=== PATIENT | male | born 1985 | race Caucasian/White ===

== ENCOUNTER 2024-05-23 20:45 | Emergency (ER) | payer SELFPAY ==
[2024-05-23 20:50] VITALS: BP 141/90
[2024-05-23 21:05] LABS: % Basophils 0.2 % (0-2); % Eosinophils 0.7 % (0-6); % Immature Granulocytes 0.5 % (0-0.5); % Lymphocytes 26.2 % (20.5-51.1); % Neutrophils 65.4 % (42.2-75.2); Absolute Eosinophils 0.1 10^3/uL (0-0.7); Absolute Lymphocytes 2.3 10^3/uL (1.2-3.4); Absolute Monocytes 0.6 10^3/uL (0.1-0.6); Absolute Neutrophils 5.8 10^3/uL (1.4-6.5); Hematocrit 49.4 % (39.0-52.0); Hemoglobin 16.7 g/dL (13.0-18.0); Mean Corp Hgb Conc. 33.8 g/dL (33.0-37.0); Mean Corpuscular Hgb 31.9 pg (27.0-31.0); Mean Corpuscular Volume 94.5 fL (80.0-94.0); Mean Platelet Volume 8.4 fL (7.4-10.4); Nucleated Red Blood Cells % 0 % (-); Platelet Count 213 10^3/uL (130-400); Red Blood Cell Count 5.23 10^6/uL (4.70-6.10); Red Cell Dist. Width 13.5 % (11.5-14.5); White Blood Cell Count 8.9 10^3/uL (4.8-10.8)
[2024-05-23 21:22] LABS: ALT (SGPT) 23 U/L (0-50); AST (SGOT) 26 U/L (17-59); Albumin 4.8 g/dl (3.5-5.0); Alkaline Phosphatase 76 U/L (38-126); Blood Urea Nitrogen 11 mg/dl (9-20); Calcium 9.9 mg/dl (8.4-10.2); Carbon Dioxide 25 mmol/L (22-30); Chloride 101 mmol/L (98-107); Glucose 105 mg/dl (70-99); Lipase 78 U/L (23-300); Potassium 4.3 mmol/L (3.5-5.1); Sodium 135 mmol/L (135-145); Total Protein 7.8 g/dl (6.3-8.2); eGFR > 60.00
[2024-05-23 23:40] VITALS: BP 150/97; BMI 23.6
--- NOTE | 2024-05-24 00:02 | ED.GENMED ---
History of Present Illness
General
Chief Complaint: Abdominal Pain
Source: patient
Exam Limitations: none
Time Seen by Provider: 05/23/24 23:45
Nursing documentation reviewed up to this point in time: agreed with
History of Present Illness
History of Present Illness:
Pleasant 38-year-old male presents the emergency department for left-sided abdominal pain. Patient states that this has been intermittent and for the last several days. He feels that it is possibly due to constipation. He did have some nausea
without vomiting or diarrhea. Patient denies any other symptoms. He states that he drinks 2 alcoholic beverages an evening. He states that when he is drinking he does get abdominal pain. Denies fever, chills, chest pain, or shortness of breath.
Patient does not want any imaging studies at this time .
Past History
Past History
ED Past Medical History: Psychiatric
ED Past Surgical History: None
Social History
Tobacco: Smoker
Alcohol: Occasional
Drug: Marijuana (last smoked one week ago) and Other (xanax taken one week ago)
Personal: Single
Living: with family
Employment: Employed
Review of Systems
Review of Systems
Allergies reviewed?: Yes
All Other Systems: ROS reviewed and negative except as documented in HPI and ROS
Constitutional: Reports no symptoms
EENT: Reports no symptoms
Respiratory: Reports no symptoms
Cardiac: Reports no symptoms
ABD/GI: Reports abdominal pain and nausea; Denies diarrhea or constipated
: Reports no symptoms
Musculoskeletal: Reports no symptoms
Skin: Reports no symptoms
Neurological: Reports no symptoms
Endocrine: Reports no symptoms
Hematologic/Lymphatic: Reports no symptoms
Psychiatric: Reports anxiety
Phy Exam
General Physical Exam
General Presentation: well appearing and no apparent distress
General Skin: warm and dry
General Habitus: normal
General Mental: alert
General Hydration: appears well hydrated
ENT Exam
ENT Exam: EOMI, pharynx normal, neck supple and normocephalic
Eye Exam
Eye Exam: PERRL, cornea clear and conjunctiva normal
Cardiovascular Exam
Cardiovascular Exam: regular rate/rhythm, no edema, no murmur and normal peripheral pulses
Pulmonary Exam
Pulmonary Exam: lungs clear, no respiratory distress, no rales, no crackles, no rhonchi, no stridor, no wheezing and no cough
Gastrointestinal Exam
Gastrointestinal Exam: normal bowel sounds, non tender (Nontender to deep or superficial palpation.), soft, no organomegaly, no pulsatile mass and non distended
Palpation: left upper quadrant: No tenderness, left lower quadrant: No tenderness, right upper quadrant: No tenderness, right lower quadrant: No tenderness and generalized: No tenderness
Neurological Exam
Neurological Exam: alert, oriented x3, no motor deficits and speech normal
Musculoskeletal Exam
Musculoskeletal Exam: full ROM and no edema
Skin Exam
Skin Exam: normal color, warm/dry, no rash and no petechia
Psychiatric Exam
Psychiatric Exam: normal mood/affect
Scores
Withdrawal Assessment of Alcohol
Withdrawal Assessment Completed?: Yes
Nausea and Vomiting: Mild nausea with no vomiting
Tactile Disturbances: None
Tremor: No tremor
Auditory Disturbances: Not present
Paroxysmal Sweats: No sweat visible
Visual Disturbances: Not present
Anxiety: Mild anxiety
Headache, Fullness in Head: Not present
Agitation: Normal activity
Orientation and clouding of sensorium: Oriented and can do serial additions
Total CIWA Score: 2
Alcohol Withdrawal Medication Recommendation: Equal to MSAS Score 0-4. Monitor & re-assess q2hrs, NO MEDICATION NEEDED
Course
Orders/Labs/Results
Orders:
Orders
05/23/24 20:56
Complete Blood Count/With Diff Urgent
Comprehensive Metabolic Panel Urgent
Lipase Urgent
05/23/24 23:58
Urinalysis Reflex To Culture Urgent
Date Specimen was Collected: 05/23/24
Time Specimen was Collected: 23:58
Abnormal Lab Results
05/23/24 05/24/24
20:56 00:04
MCV 94.5 H fL
(80.0-94.0)
MCH 31.9 H pg
(27.0-31.0)
Glucose 105 H mg/dl
(70-99)
Urine Ketones 3+ A
(Negative)
05/23/24 20:56
05/23/24 20:56
Vital Signs
Initial and Last Documented VS:
Initial Vital Signs
Temp Pulse Resp BP Pulse Ox
97.8 F 90 16 141/90 100
05/23/24 20:50 05/23/24 20:50 05/23/24 20:50 05/23/24 20:50 05/23/24 20:50
Last Documented Vital Signs
Temp Pulse Resp BP Pulse Ox
97.6 F 81 16 150/97 100
05/23/24 23:43 05/23/24 23:40 05/23/24 23:40 05/23/24 23:40 05/23/24 23:40
*Radiology
Radiology exam reviewed: other (Patient refused)
Update Note
Update Note:
Discussed use of imaging with patient. At this time he defers stating that he does not have abdominal pain. He states that he gets similar abdominal pain while he is drinking. He drinks 2 drinks per evening when he does drink and states that he
has never had withdrawal issues other than minor abdominal pain. Patient does not wish for any more testing at this time. He understands the risk of a missed diagnosis. Patient be discharged in stable condition without any symptoms at this time.
ED Attending Note
-
Portions of this chart may have been created with voice recognition software.� Occasional wrong word or��sound alike� substitutions may have occurred due to the inherent limitations of voice recognition software.
Discharge Plan
Departure
Patient Disposition: Home (Routine Discharge)
Date of Disposition: 05/24/24
Time of Disposition: 00:20
Patient with high blood pressure during this ER visit?: Yes
Discharge Problem:
Abdominal pain
Instructions: Abdominal Pain, BLOOD PRESSURE
Prescriptions:
No Action
ybspjdux-kij-mhljjvn sulfate [One Daily Multi-Vit w-Mineral] 1 EACH tablet
1 ea PO DAILY
cephalexin 500 MG capsule
500 mg PO QID Qty: 28 0RF
clindamycin HCl 300 MG capsule
300 mg PO Q6 Qty: 28 0RF
Referrals:
[facility] [Provider Group]
[facility] [Outside]
[facility] [Outside]
NONE,* [Family Provider] -
Activity Restrictions/Additional Instructions:
[Your prescriptions were sent electronically to the pharmacy that you specified.]
It was a pleasure meeting you and taking part in your care. We hope for your continued healing and wellness.
Please read discharge instructions in their entirety. However, they are for general education and may not describe your exact diagnosis at discharge. Information on your ER visit and medical conditions were discussed with you along with appropriate
follow up information...
If indicated, please take your medications as instructed and indicated on discharge paperwork.
Please schedule a follow up appointment as directed. Call to schedule an appointment
Please return to the emergency department with ANY change in, persisting, or worsening of symptoms. If any of your symptoms do not improve, or persist, or become more severe within 6-12 hours, please return to the emergency department for further
care.
Please return to the emergency department if you develop a headache, neck pain/stiffness, fever greater than 100.4F, chest pain, shortness of breath, persistent nausea, vomiting, slurred speech, difficulty walking, numbness/tingling, weakness, signs
of infection or any other symptoms that are worrisome to you.
If you have any questions or concerns please do not hesitate to call the Hospital at or E-mail me directly at [email or web address]
Interventions
Interventions:
*Risk Screen - Suicide Last Done: 05/23/24 20:50
*General Assessment Last Done: 05/23/24 20:50
*Neglect/Abuse Screening Last Done: 05/24/24 00:13
ED- Fall Risk Assessment Last Done: 05/24/24 00:13
*ED COVID-19 Vaccine History Last Done: 05/23/24 20:50
GS-Twdenr-Lusebjcjek Assessment Last Done: 05/24/24 00:13
Discharge Date and Time
Print Language: MOHAWK
[2024-05-24 00:11] LABS: Urine Albumin Negative (Neg - Trace); Urine Bilirubin Negative (Negative); Urine Character Clear (Clear); Urine Color Yellow; Urine Glucose Negative (Negative); Urine Ketone 3+ (Negative); Urine Leukocyte Negative (Negative); Urine Nitrite Negative (Negative); Urine Occult Blood Negative (Negative); Urine Urobilinogen Negative (Neg - 1+)
== END 2024-05-24 00:35 | disposition home or self-care (01) ==
LOC: EMR 20:45
PROVIDERS: Emergency Medicine; EMERGENCY PHYSICIAN Student in an Organized Health Care Education/Training Program
DX: R10.9 Unspecified abdominal pain (principal); R11.0 Nausea; F41.9 Anxiety disorder, unspecified; I10 Essential (primary) hypertension; F31.9 Bipolar disorder, unspecified; F32.A Depression, unspecified; F43.10 Post-traumatic stress disorder, unspecified; F17.210 Nicotine dependence, cigarettes, uncomplicated
CPT/HCPCS: 99283; 80053; 81003; 83690; 85025

== ENCOUNTER → 2025-02-21 15:49 | Outpatient (REF) | payer BC, SELFPAY | LOC: RAD 15:49 | PROVIDERS: ATTENDING PHYSICIAN Physician Assistant | DX: R10.85 Abdominal pain of multiple sites (principal) | CPT/HCPCS: 74177; Q9967 ==

== ENCOUNTER 2025-02-21 21:32 | Observation (INO) | payer BC, SELFPAY ==
[2025-02-21 17:21] VITALS: BP 122/81
[2025-02-21 18:12] VITALS: BP 109/77
--- NOTE | 2025-02-21 18:33 | ED.GENMED ---
History of Present Illness
General
Chief Complaint: Abdominal Symptoms
Source: patient
Exam Limitations: none
Time Seen by Provider: 02/21/25 18:13
History of Present Illness
History of Present Illness:
39yoM with a history of hypertension presenting for evaluation of an abnormal outpatient scan. Patient has been having ongoing abdominal pain for over a week. Pain initially started in the left upper but migrated to the right lower quadrant over
the past several days. Pain is worse with movement. He had diarrhea at symptom onset but bowel movements are now regular. No fevers. He was seen by his PCP and was sent for an outpatient CT scan which he completed this afternoon. CT showed
'Phlegmonous changes and a large amount of inflammatory fat stranding in the right lower quadrant, which appears to be secondary to acute appendicitis.' His PCP sent him to the ED for evaluation. His only current medication is amlodipine. No
prior abdominal surgeries.
Past History
Past History
ED Past Medical History: Psychiatric
ED Past Surgical History: None
Social History
Tobacco: Smoker
Alcohol: Occasional
Drug: Marijuana (last smoked one week ago) and Other (xanax taken one week ago)
Personal: Single
Living: with family
Employment: Employed
Phy Exam
General Physical Exam
General Presentation: well appearing and no apparent distress
General age: appears stated age
General Skin: warm and dry
General Habitus: normal
General Mental: alert
ENT Exam
ENT Exam: normocephalic
Pulmonary Exam
Pulmonary Exam: no respiratory distress
Gastrointestinal Exam
Gastrointestinal Exam: soft, non distended and other (+Focal tenderness in RLQ. +Voluntary guarding and rebound.)
Neurological Exam
Neurological Exam: alert
Krzysztof Coma Scale
Eye Opening: Spontaneous
Verbal Response: Oriented
Motor Response: Obeys Commands
GCS Total Score: 15
Skin Exam
Skin Exam: normal color and warm/dry
Psychiatric Exam
Psychiatric Exam: normal mood/affect
Course
Orders/Labs/Results
Orders:
Orders
02/21/25 18:30
0.9% Sodium Chloride 1000 ml [Nss] 1,000 ml IV BOLUS
Piperacillin/Tazo 4.5 Gram [Zosyn] 4.5 gram in 100 ml IV NOW
02/21/25 18:38
Complete Blood Count/With Diff Urgent
Comprehensive Metabolic Panel Urgent
02/21/25 21:08
Admit/Transfer Patient As Directed
Co-Sign Provider:
Level of Care: Observation services
Assign to:: Medical/Surgical
Physician / Group: Dr. Logan/ General Surgery
Diagnosis: Acute appendicitis
PRN Pain Medication Management As Directed
May give lesser potent ordered pain med per pt: Yes
preference::
Protocol:: Medication orders for pain may be administered in a
manner that supports deferring to patient preference
when the pt is:
- Requesting an ordered lesser potent pain medication.
Least to most potent pain medications are defined
as: acetaminophen < NSAID < tramadol < opioids
(morphine, oxycodone, hydromorphone).
- Requesting a lesser dose of the same medication IF
ORDERED.
- Requesting a less intrusive route of administration
if both routes are prescribed by the provider (PO <
IV).
02/21/25 21:10
Code Status As Directed
Resuscitation Status: Full Code
02/21/25 22:05
0.9% Sodium Chloride 1000 ml [Nss] 1,000 ml IV 75 mls/hr
Benzocaine/Menthol [Anesthetic Lozenge] 1 lozenge PO Q4HPRN PRN
Ketorolac [Toradol] 10 mg IV Q6HPRN PRN
Ondansetron Injectable [Zofran] 4 mg IV Q6HPRN PRN
02/21/25 22:05
Activity As Directed
Activity Level: Out of Bed-Early Mobility
Anti-embolism (PRATHA) Hose As Directed
Type: Thigh high
Intake/ Output As Directed
Frequency: Per unit guidelines
Vital Signs As Directed
Frequency: Per unit guidelines
Rx Incentive Spirometry [RESP] Routine
Frequency: q1h while awake
# of times per hour: 10
DX Deep Vein Thrombosis Video Routine
02/22/25 00:00
Piperacillin/Tazo 3.375 Gram [Zosyn] 3.375 gram in 50 ml IV Q6H
02/22/25 06:00
Electrocardiogram (*1) IN AM
Reason for Study: PreOp
NPO
Allow oral meds: Yes
Allow clear liquids: No
Basic Metabolic Panel IN AM
Complete Blood Count/No Diff IN AM
02/22/25 08:00
Amlodipine [Norvasc] 10 mg PO DAILY
02/22/25 18:00
Enoxaparin Sodium [Lovenox] 40 mg SC QPM
Abnormal Lab Results
02/21/25
18:38
RBC 4.35 L 10^6/uL
(4.70-6.10)
MCH 31.5 H pg
(27.0-31.0)
Absolute Neuts (auto) 8.6 H 10^3/uL
(1.4-6.5)
Absolute Lymphs (auto) 1.1 L 10^3/uL
(1.2-3.4)
Absolute Monos (auto) 0.9 H 10^3/uL
(0.1-0.6)
Neutrophils % 80.4 H %
(42.2-75.2)
Lymphocytes % 9.8 L %
(20.5-51.1)
Sodium 132 L mmol/L
(135-145)
02/21/25 18:38
02/21/25 18:38
Vital Signs
Initial and Last Documented VS:
Initial Vital Signs
Temp Pulse Resp BP Pulse Ox
99.4 F 82 20 122/81 98
02/21/25 17:21 02/21/25 17:21 02/21/25 17:21 02/21/25 17:21 02/21/25 17:21
Last Documented Vital Signs
Temp Pulse Resp BP Pulse Ox
99.2 F 80 16 112/73 100
02/21/25 22:11 02/21/25 22:11 02/21/25 22:11 02/21/25 22:11 02/21/25 22:11
MDM/Problems Addressed
Differential Diagnosis Includes:
39yoM here for appendicitis seen on outpatient CT scan. Has been experiencing RLQ pain for >1 week. Vital signs stable. Patient nontoxic-appearing. There is voluntary guarding and rebound on abdominal exam.
Labs obtained and white count 10.7. IV Zosyn ordered. General surgery notified and patient admitted for further management.
*Pulse Oximetry
SaO2: 98
Oxygen Mode of Delivery: Room air
Patient hypoxic: no
*Critical Care Note
Total Time (30-74mins, 75-104mins- exclusive of procedures): Not Applicable
ED Attending Note
-
Portions of this chart may have been created with voice recognition software.� Occasional wrong word or��sound alike� substitutions may have occurred due to the inherent limitations of voice recognition software.
Discharge Plan
Departure
Patient Disposition: Admit
Date of Disposition: 02/21/25
Time of Disposition: 18:36
Presentation/result/management discussed w/ accepting MD/DO: Dr. Logan
Discharge Problem:
Acute appendicitis
Interventions
Interventions:
*Risk Screen - Suicide Last Done: 02/21/25 17:21
*General Assessment Last Done: 02/21/25 17:21
*Neglect/Abuse Screening Last Done: 02/21/25 17:21
*ED- Fall Risk Assessment Last Done: 02/21/25 17:37
*ED COVID-19 Vaccine History Last Done: 02/21/25 17:37
*ED Influenza Vaccine History Last Done: 02/21/25 17:37
*Nursing Disposition Last Done: 02/21/25 22:33
GB-Biaggs-Sgtuzmhwqm Assessment Last Done: 02/21/25 18:14
Discharge Date and Time
Discharge Date/Time: 02/21/25 22:34
[2025-02-21 18:44] LABS: Hematocrit 39.1 % (39.0-52.0); Hemoglobin 13.7 g/dL (13.0-18.0); Mean Corp Hgb Conc. 35.0 g/dL (33.0-37.0); Mean Corpuscular Volume 89.9 fL (80.0-94.0); Nucleated Red Blood Cells % 0 % (-); Platelet Count 241 10^3/uL (130-400); Red Cell Dist. Width 13.5 % (11.5-14.5)
[2025-02-21] MEDS: ZOSYN 100 IV (18:44)
[2025-02-21] MEDS: NSS 1000 IV ×2 (18:45→22:40)
[2025-02-21 18:58] LABS: ALT (SGPT) 49 U/L (0-50); AST (SGOT) 35 U/L (17-59); Albumin 3.8 g/dl (3.5-5.0); Alkaline Phosphatase 69 U/L (38-126); Blood Urea Nitrogen 12 mg/dl (9-20); Calcium 8.6 mg/dl (8.4-10.2); Carbon Dioxide 26 mmol/L (22-30); Chloride 99 mmol/L (98-107); Glucose 94 mg/dl (70-99); Potassium 3.7 mmol/L (3.5-5.1); Sodium 132 mmol/L (135-145); Total Protein 6.5 g/dl (6.3-8.2); eGFR > 60.00
--- NOTE | 2025-02-21 21:13 | HPS.HSE ---
Addendum entered and electronically signed by Herman Torres MD 02/22/25 11:49:
I saw and examined the patient.
The Accounting Manager Cpa's note was reviewed and I agree with the note.
Comment: 10 days of abd pain, generalized initially with migration to the rlq, afvss, ttp on exam to rlq, ct with phlegmonous changes to rlq without drainable collection, plan for iv abx and serial exams. OK for diet. dvt ppx
Original Note:
Family Physician
-
Family Physician: MARIO Pereira
Chief Complaint
-
Abdominal pain
History of Present Illness
Patient is a 39 year old male, with a past medical history significant for hypertension who presents to the emergency department today for evaluation of an abnormal outpatient CT scan Abdomen/Pelvis. Patient was having abdominal pain for over a
week. Pain initially started in left side of the abdomen but on Wednesday moved to the right lower quadrant. Pain has been consistently in the right lower quadrant and is worse with movement. He initally had diarrhea with abdominal pain but that has
now resolved. He denies fevers, nausea, vomiting, headaches, chest discomfort. Patient was seen by his PCP and sent for an outpatient CT scan which was completed this afternoon. CT showed 'Phlegmonous changes and a large amount of inflammatory fat
stranding in the right lower quadrant, which appears to be secondary to acute appendicitis.' His PCP sent him to the ED for evaluation. His only current medication is amlodipine. No prior abdominal surgeries.
In the emergency department, labs unremarkable, slight hyponatremia as sodium 132, vital signs stable, afebrile.
Abd/Pelvis CT showed: Phlegmonous changes and a large amount of inflammatory fat stranding in the right lower quadrant, which appears to be secondary to acute appendicitis. No extraluminal free air or rim-enhancing fluid collection.
In the emergency department patient received: NSS 1 liter bolus, IV antibiotics Zosyn 4.5 g IV x 1 dose.
ED Provider, Toya Gomez PA-c reviewed with General Surgery, Dr. Logan, who is accepting the patient to his service.
Plan: NPO, IV fluids, IV antibiotics, pain management and antiemetics.
Medical History
Past Medical History
Past Medical History: Reports HTN and Psychiatric
Past Surgical History: Reports None
Social History
Tobacco: Smoker
Alcohol: Occasional
Drug: Marijuana (last smoked one week ago) and Other (Xanax taken one week ago))
Personal: Single
Living: With Family
Employment: Employed
Family History
Family History: Not pertinent
Allergies / Home Medications
Allergies reflects when Allergies were last updated in [employer].
Home Medications with original date entered in [employer]
Allergy/Medication List:
Patient Allergies
Allergy/AdvReac Type Severity Reaction Status Date / Time
shellfish derived Allergy Unknown Verified 02/21/25 17:24
Home Medications
�Medication �Instructions �Recorded
amlodipine 10 mg tablet (Norvasc) 10 mg PO DAILY Blood Pressure 02/21/25
ginkgo biloba 40 mg tablet 40 mg PO DAILY Supplement 02/21/25
ibuprofen 200 mg tablet (Advil) 200 mg PO Q6HPRN PRN mild pain 02/21/25
magnesium glycinate 100 mg (as 100 mg PO HS Electrolyte Repletion 02/21/25
glycinate) tablet
therapeutic multivitamin 1 tab PO DAILY Supplement 02/21/25
trazodone 50 mg tablet 50 mg PO HSPRN PRN sleep 02/21/25
Review of Systems
-
History Source: Patient
A 12 point ROS was completed and negative except as noted: Yes
Respiratory: Reports No Symptoms
Cardiac: Reports No Symptoms
Abdomen/GI: Reports Abdominal Pain (right lower quadrant)
: Reports No Symptoms
Musculoskeletal: Reports No Symptoms
Psych: Reports Calm
Physical Exam
Vital Signs
Vital Signs
Temp Pulse Resp BP Pulse Ox
99.4 F 82 20 109/77 98
02/21/25 17:21 02/21/25 17:21 02/21/25 17:21 02/21/25 18:12 02/21/25 18:35
Physical Exam
General: Well Developed, No Apparent Distress, Comfortable and Conversant
HEENT: NormoCephalic, Moist mucous membranes and PERRLA
Respiratory: Clear and Non Labored Respirations
Cardiac: S1/S2 and Regular Rhythm
GI: Soft, Tender (right lower quadrant tenderness, + voluntary guarding and rebound) and Distended
Musculoskeletal: No Edema
Neuro: Awake, Alert and Oriented
Psych: Calm
Laboratory Results
-
02/21/25 18:38
02/21/25 18:38
Laboratory Results
Total Bilirubin 0.5 mg/dl (0.2-1.3) 02/21/25 18:38
AST 35 U/L (17-59) 02/21/25 18:38
ALT 49 U/L (0-50) 02/21/25 18:38
Alkaline Phosphatase 69 U/L (38-126) 02/21/25 18:38
Data Reviewed
-
CT Scan: Report Reviewed by me
Lab Data: Labs Reviewed by me
Impression/Plan
-
IMPRESSION:
Patient is a 39 year old male, with a past medical history significant for hypertension who presents to the emergency department today for evaluation of an abnormal outpatient CT scan Abdomen/Pelvis. Patient was having abdominal pain for over a week.
PLAN:
Acute appendicitis
-Admit to General Surgery, Med/Surg under the service of Dr. Logan
-CT Abd/Pelvis impression: Phlegmonous changes and a large amount of inflammatory fat stranding in the right lower quadrant, which appears to be secondary to acute appendicitis. No extraluminal free air or rim-enhancing fluid collection.
-NPO until seen by Surgery, IV fluids NSS @ 75 mls/hr.
-IV Antibiotics: Continued Zosyn 3.375 mg IV Q6H.
-Pain medication: Toradol 10 mg IV Q6H PRN, Tylenol 650 mg PO Q6H PRN.
-Antiemetics: Zofran 4 mg IV Q6H PRN
Hypertension
-Continue home medication: Amlodipine 10 mg PO daily
Nicotine dependence
-Nicotine patch ordered
-Encourage cessation
DVT Prophylaxis: SCD's
Code status: Full code
[2025-02-21 21:15] VITALS: BP 111/69
[2025-02-21 22:11] VITALS: BP 112/73
[2025-02-21 22:12] VITALS: BMI 24.6
[2025-02-21] MEDS: MELATONIN 5 MG PO (22:40)
[2025-02-21 23:00] VITALS: BP 113/70
[2025-02-22] MEDS: ZOSYN 50 IV ×5 (00:13→23:59)
[2025-02-22 07:00] VITALS: BP 105/68
[2025-02-22 07:46] LABS: Hematocrit 37.3 % (39.0-52.0); Hemoglobin 13.1 g/dL (13.0-18.0); Mean Corp Hgb Conc. 35.1 g/dL (33.0-37.0); Mean Corpuscular Volume 90.8 fL (80.0-94.0); Platelet Count 257 10^3/uL (130-400); Red Cell Dist. Width 13.3 % (11.5-14.5)
[2025-02-22 07:49] LABS: Blood Urea Nitrogen 9 mg/dl (9-20); Calcium 8.5 mg/dl (8.4-10.2); Carbon Dioxide 25 mmol/L (22-30); Chloride 105 mmol/L (98-107); Estimated Creatinine Clearance 121 ml/min; Glucose 89 mg/dl (70-99); Potassium 3.9 mmol/L (3.5-5.1); Sodium 133 mmol/L (135-145); eGFR > 60.00
[2025-02-22] MEDS: TYLENOL 650 MG PO ×2 (08:32→22:43)
[2025-02-22] MEDS: NICODERM TRANSDERMAL 14 MG TRANSDERM (08:33)
[2025-02-22] MEDS: NORVASC 10 MG PO (08:33)
--- NOTE | 2025-02-22 10:47 | CM ---
Patient seen bedside, initial assessment completed. Patient is a 39 year old male, with a past medical history significant for hypertension who presents to the emergency department today for evaluation of an abnormal outpatient CT scan
Abdomen/Pelvis.
Patient resides w/ his mother and 2 brothers in a 2[address], no steps. Independent. Works as a cook. OP PT for back 2 years ago. No DME.
Address, point of contact and insurance verified
PCP: Lobo Mayen
Pharmacy: [facility]
Patient admitted under obs services. OOBS form verbally reviewed, copy provided, copy on chart
NPO until seen by Surgery
IV abx
Plan: Home, no needs likely
[2025-02-22] MEDS: NSS IV (12:57)
[2025-02-22 15:41] VITALS: BP 103/61
[2025-02-22] MEDS: LOVENOX 40 MG SC (17:24)
[2025-02-22 23:00] VITALS: BP 102/60
[2025-02-23] MEDS: MELATONIN 5 MG PO (00:58)
[2025-02-23] MEDS: ZOSYN 50 IV ×3 (06:34→17:53)
[2025-02-23 07:43] VITALS: BP 109/60
[2025-02-23] MEDS: NORVASC 10 MG PO (07:44)
--- NOTE | 2025-02-23 10:08 | W.PN.GS2 ---
Addendum entered and electronically signed by Herman Torres MD 02/23/25 10:43:
I saw and examined the patient.
The Tube Lancer's note was reviewed and I agree with the note.
Comment: Improved, yeh controlled, francisco javier PO, ambulating, voiding. ttp to rlq on exam with palpable phlegmon. Cont IV abx and diet. DVT ppx. Tentatively for DC home tomorrow with 7 days PO abx
Original Note:
Today's Communication / Plan
-
c/w IV antibiotics
Assessment / Plan
-
39 yo male with h/o HTN who presented with abdominal pain for 10 days (initially generalized) with RLQ tenderness. Presented at advice of PCP as OP CT with phlegmonous changes to rlq without drainable collection consistent with acute appendicitis.
Given degree of inflammation, following nonoperatively with medical management with IV abx at this time with noted improvement.
Low grade temps of 99.4, VSS
Exam/Pain improving on IV ABX, tolerating diet
Plan;
Continue with IV abx (zosyn 3.375gm q6h) and follow for continued improvement
Follow exams/fever trend
Continue LRD
Analgesics prn
Labs in AM
Lovenox for VTE ppx
Subjective Data
-
Date of Service: February 23, 2025
Pt seen and examined at bedside with Dr. Torres. Denies n/v. Feels a little better today. Tolerating diet.
Objective Data
-
Intake and Output
02/22/25 02/23/25 02/24/25
06:59 06:59 06:59
Intake Total 775 / 775 895 / 895 240 / 240
Balance 775 / 775 895 / 895 240 / 240
Intake:
Oral fluids 420 / 420 240 / 240
IV fluids (Total) 675 / 675 375 / 375
IV piggybacks 100 / 100 100 / 100
Other:
Number of approximated MODERATE 3
amounts of urine
Number of approximated LARGE 1
amounts of urine
Vital Signs
Temp Pulse Resp BP Pulse Ox
98.5 F 72 16 109/60 100
02/23/25 07:43 02/23/25 07:43 02/23/25 07:43 02/23/25 07:43 02/23/25 07:43
Lab Results
02/22/25 07:16
02/22/25 07:16
Calcium 8.5 mg/dl (8.4-10.2) 02/22/25 07:16
Total Bilirubin 0.5 mg/dl (0.2-1.3) 02/21/25 18:38
AST 35 U/L (17-59) 02/21/25 18:38
ALT 49 U/L (0-50) 02/21/25 18:38
Alkaline Phosphatase 69 U/L (38-126) 02/21/25 18:38
Total Protein 6.5 g/dl (6.3-8.2) 02/21/25 18:38
Albumin 3.8 g/dl (3.5-5.0) 02/21/25 18:38
Physical Exam
-
NAD
ABD soft, TTP to RLQ (improved from yesterday), ND
Patient has a blue catheter: No
Patient has a central line: No
--- NOTE | 2025-02-23 11:08 | CM ---
CM reviewed medical records. Patient remains acutely ill at this time.
PLAN: no needs noted for home.
[2025-02-23 14:43] VITALS: BP 96/62
[2025-02-23] MEDS: LOVENOX SC (17:52)
--- NOTE | 2025-02-23 20:00 | PTCARENOTE ---
Patient denied need for pain medication all shift. He is walking around the unit. Continues iv abx, vitals stable. Tolerating low res diet. See MAR/flowsheets for further care details.
[2025-02-23 23:13] VITALS: BP 93/61
[2025-02-24] VITALS (13 sets, daily range): BP systolic 70–123; BP diastolic 60–74
[2025-02-24] MEDS: ZOSYN 50 IV ×4 (00:13→17:51)
[2025-02-24 07:55] LABS: Hematocrit 39.3 % (39.0-52.0); Hemoglobin 13.9 g/dL (13.0-18.0); Mean Corp Hgb Conc. 35.4 g/dL (33.0-37.0); Mean Corpuscular Volume 91.2 fL (80.0-94.0); Platelet Count 331 10^3/uL (130-400); Red Cell Dist. Width 13.8 % (11.5-14.5)
[2025-02-24 08:08] LABS: Blood Urea Nitrogen 9 mg/dl (9-20); Calcium 8.8 mg/dl (8.4-10.2); Carbon Dioxide 27 mmol/L (22-30); Chloride 104 mmol/L (98-107); Estimated Creatinine Clearance 108 ml/min; Glucose 86 mg/dl (70-99); Potassium 4.1 mmol/L (3.5-5.1); Sodium 135 mmol/L (135-145); eGFR > 60.00
--- NOTE | 2025-02-24 11:15 | W.PN.GS2 ---
Addendum entered and electronically signed by Herman Torres MD 02/24/25 12:30:
I saw and examined the patient.
The Jboss Architect's note was reviewed and I agree with the note.
Comment: Clinically feels better, low grade temps and new leekocytosis noted, rpt scan with RLQ fluid collection, plan for IR drainage, OK for diet post procedure
Original Note:
Today's Communication / Plan
-
IR drainage of abscess
Assessment / Plan
-
39 yo male with h/o HTN who presented with abdominal pain for 10 days (initially generalized) with RLQ tenderness. Presented at advice of PCP as OP CT with phlegmonous changes to rlq without drainable collection consistent with acute appendicitis.
Given degree of inflammation, following nonoperatively with medical management with IV abx at this time with noted improvement.
Low grade temps of 100, BP's soft low today, no tachycardia
New leukocytosis prompted CT imaging this AM which demonstrates periappendiceal abscess
Plan;
Continue with IV abx (zosyn 3.375gm q6h)
IR consulted for Abscess drainage, NPO for procedure then ok to resume LRD
Follow exams/fever trend
Analgesics prn
Labs in AM
Lovenox for VTE ppx
Subjective Data
-
Date of Service: February 24, 2025
Pt seen and examined at bedside with Dr Torres. Denies n/v. Pain stable. Tolerating diet.
Objective Data
-
Intake and Output
02/23/25 02/24/25 02/25/25
06:59 06:59 06:59
Intake Total 895 / 895 1000 / 1000
Balance 895 / 895 1000 / 1000
Intake:
Oral fluids 420 / 420 900 / 900
IV fluids (Total) 375 / 375
IV piggybacks 100 / 100 100 / 100
Other:
How many times incontinent 1
MODERATE amount urine
Number of approximated MODERATE 3 3
amounts of urine
Number of approximated LARGE 1
amounts of urine
Vital Signs
Temp Pulse Resp BP Pulse Ox
98.1 F 63 16 99/60 97
02/24/25 10:38 02/24/25 07:00 02/24/25 07:00 02/24/25 10:38 02/24/25 07:00
Lab Results
02/24/25 06:43
02/24/25 06:43
Calcium 8.8 mg/dl (8.4-10.2) 02/24/25 06:43
Total Bilirubin 0.5 mg/dl (0.2-1.3) 02/21/25 18:38
AST 35 U/L (17-59) 02/21/25 18:38
ALT 49 U/L (0-50) 02/21/25 18:38
Alkaline Phosphatase 69 U/L (38-126) 02/21/25 18:38
Total Protein 6.5 g/dl (6.3-8.2) 02/21/25 18:38
Albumin 3.8 g/dl (3.5-5.0) 02/21/25 18:38
Physical Exam
-
NAD
ABD soft, TTP to RLQ, firmess to RLQ, ND
Patient has a blue catheter: No
Patient has a central line: No
[2025-02-24] MEDS: NORVASC PO (11:22)
--- NOTE | 2025-02-24 12:31 | CM ---
Chart reviewed. Case Management will monitor for disposition needs
--- NOTE | 2025-02-24 14:35 | W.PN.UPDATE ---
Update Note
Progress Note Update
-8.5F pigtail drained placed into RLQ collection with CT guidance.
-Purulent fluid aspirated. Drain orders placed.
-Pt tolerated well.
[2025-02-24] MEDS: ULTRAM 50 MG PO (16:43)
[2025-02-24] MEDS: LOVENOX 40 MG SC (17:50)
[2025-02-25] MEDS: ZOSYN 50 IV ×2 (00:13→05:27)
[2025-02-25 03:12] VITALS: BP 112/63
[2025-02-25 05:52] LABS: Hematocrit 40.6 % (39.0-52.0); Hemoglobin 14.2 g/dL (13.0-18.0); Mean Corp Hgb Conc. 35.0 g/dL (33.0-37.0); Mean Corpuscular Volume 91.2 fL (80.0-94.0); Platelet Count 345 10^3/uL (130-400); Red Cell Dist. Width 13.8 % (11.5-14.5)
[2025-02-25 07:00] VITALS: BP 106/66
[2025-02-25 08:03] VITALS: BP 106/66
[2025-02-25] MEDS: NORVASC PO (09:31)
--- NOTE | 2025-02-25 09:33 | W.PN.GS2 ---
Today's Communication / Plan
-
dispo planning
Assessment / Plan
-
39 yo male with h/o HTN who presented with abdominal pain for 10 days (initially generalized) with RLQ tenderness. Presented at advice of PCP as OP CT with phlegmonous changes to rlq without drainable collection consistent with acute appendicitis.
Given degree of inflammation, following nonoperatively with medical management with IV abx at this time with noted improvement.
No fevers, VSS
Leukocytosis resolved
PPD #1 IR drainage of periappendiceal abscess, cx pending
Plan;
Continue with abx, will transition to Po upon d/c and follow cx as OP
c/w IR drain with daily flush
Analgesics prn
Diet as tolerated
Lovenox for VTE ppx
dispo planning
Subjective Data
-
Date of Service: February 25, 2025
Pt seen and examined at bedside. Denies n/v. Tolerating diet. Some pain at drain site but otherwise comfortable.
Objective Data
-
Intake and Output
02/24/25 02/25/25 02/26/25
06:59 06:59 06:59
Intake Total 1000 / 1000 280 / 280
Output Total 70 / 70
Balance 1000 / 1000 210 / 210
Intake:
Oral fluids 900 / 900 120 / 120
IV piggybacks 100 / 100 150 / 150
Amount instilled into Drain (
Total)
Right Lower Abdomen Placed in
IR
Output:
Drain Output (Total) 70 / 70
Right Lower Abdomen Placed in 70 / 70
IR
Other:
How many times incontinent 1
MODERATE amount urine
Number of approximated SMALL 1
amounts of urine
Number of approximated MODERATE 3 3
amounts of urine
Vital Signs
Temp Pulse Resp BP Pulse Ox
98.1 F 57 14 106/66 97
02/25/25 07:00 02/25/25 09:31 02/25/25 07:00 02/25/25 09:31 02/25/25 07:00
Lab Results
02/25/25 05:40
02/24/25 06:43
Calcium 8.8 mg/dl (8.4-10.2) 02/24/25 06:43
Total Bilirubin 0.5 mg/dl (0.2-1.3) 02/21/25 18:38
AST 35 U/L (17-59) 02/21/25 18:38
ALT 49 U/L (0-50) 02/21/25 18:38
Alkaline Phosphatase 69 U/L (38-126) 02/21/25 18:38
Total Protein 6.5 g/dl (6.3-8.2) 02/21/25 18:38
Albumin 3.8 g/dl (3.5-5.0) 02/21/25 18:38
Physical Exam
-
NAD
ABD soft, TTP to drain site, ND
Patient has a blue catheter: No
Patient has a central line: No
--- NOTE | 2025-02-25 09:36 | W.DCSUMMARY ---
Discharge Summary
Discharge Data
Date of Admission: 02/21/25
Date of Discharge: 02/25/25
-
Pending Results: No
Hospital Course
Mr Kulkarni is a 39 yo male with h/o HTN who presented with abdominal pain for 10 days (initially generalized) with RLQ tenderness. He was evaluated by his PCP with outpatient CT demonstrating phlegmonous changes to the right lower quadrant without
drainable collection consistent with acute appendicitis and he was advised to present to the ED. Given degree of inflammation, he was followed nonoperatively with medical management and IV antibiotics. Follow up CT during his course of stay
demonstrated interval development of periappendiceal abscess and a drain was placed in interventional radiology for management. He tolerated the procedure well and had resolution in leukocytosis post procedure with improvement in discomfort. He was
discharged to home on oral antibiotics with drain in place with outpatient follow up planned in the short term for eventual drain removal and discussion of interval appendectomy after acute inflammation improved.
Discharge Plan
-
Patient Disposition: Home (Routine Discharge)
Discharge Diagnosis/Procedures: Acute appendicitis
IR drainage of periappendiceal abscess
Diet: As tolerated and Regular
Activity: As tolerated
Bathing Restrictions: OK to Shower
Wound Care: See handout for drain care instructions. You will need to flush daily.
Activity Restrictions/Additional Instructions:
Call your surgeon if you have worsening pain or a fever >100.5.
Call your surgeon's office regarding notes for work
Referrals:
Lobo Mayen PA [Family Provider, Family Practice]
Herman Torres MD [Active, Surgical] - in one to two weeks
Prescriptions:
New
amoxicillin-pot clavulanate 875-125 mg tablet
1 tab PO Q12 Qty: 14 0RF
sodium chloride 0.9 % (flush) [Normal Saline Flush] Syringe
10 ml intra-catheter DAILY Qty: 300 0RF
Rx Instructions:
Flush drain daily with 10ml of normal saline
tramadol 50 mg tablet
25 - 50 mg PO Q6HPRN PRN (Reason: severe pain/breakthrough pain) Qty: 10 0RF
Continued
trazodone 50 mg Tablet
50 mg PO HSPRN PRN (Reason: sleep)
therapeutic multivitamin Tablet
1 tab PO DAILY
ginkgo biloba 40 mg Tablet
40 mg PO DAILY
amlodipine [Norvasc] 10 mg Tablet
10 mg PO DAILY
ibuprofen [Advil] 200 mg Tablet
200 mg PO Q6HPRN PRN (Reason: mild pain)
magnesium glycinate 100 mg Tablet
100 mg PO HS
Discharge Orders:
Discharge Patient (As Directed); Ordered 02/25/25
Ordered By: Cara Godfrey
Discharge Date and Time
Discharge Date/Time: 02/25/25 10:33
Print Language: NIUEAN
[2025-02-25 10:10] VITALS: BP 111/76
--- NOTE | 2025-02-25 10:40 | CM ---
Per Nursing, patient discharged to home with TRINA drain intact; transported home
== END 2025-02-25 10:33 | disposition home or self-care (01) ==
LOC: 2 SOUTH 21:32
PROVIDERS: Nurse Practitioner Family; Physician Assistant; Registered Nurse; ADMITTING PHYSICIAN Surgery; EMERGENCY PHYSICIAN Emergency Medicine; FAMILY PHYSICIAN Physician Assistant
DX: K35.33 Acute appendicitis with perforation, localized peritonitis, and gangrene, with abscess (principal); R10.9 Unspecified abdominal pain; I10 Essential (primary) hypertension; F17.200 Nicotine dependence, unspecified, uncomplicated; E87.1 Hypo-osmolality and hyponatremia; R93.3 Abnormal findings on diagnostic imaging of other parts of digestive tract; R16.0 Hepatomegaly, not elsewhere classified; Z91.013 Allergy to seafood; Z79.899 Other long term (current) drug therapy
CPT/HCPCS: 49406; 74177; 80048; 80053; 85025; 85027; 87070; 87071; 87186; 87205; 93005; 96365; 99152; 99285; G0378; Q9967

== ENCOUNTER → 2025-03-12 12:35 | Outpatient (REF) | payer BC, SELFPAY ==
[2025-03-12 12:55] VITALS: BP 123/62; BP_SYST 68
[2025-03-12 13:25] VITALS: BP 113/72; BP_SYST 72
[2025-03-12 13:40] VITALS: BP 113/72
== END ==
LOC: RADI 12:35
PROVIDERS: ATTENDING PHYSICIAN Surgery; FAMILY PHYSICIAN Physician Assistant
DX: Z46.82 Encounter for fitting and adjustment of non-vascular catheter (principal); K35.33 Acute appendicitis with perforation, localized peritonitis, and gangrene, with abscess
CPT/HCPCS: 49424; 76080

== ENCOUNTER 2025-03-20 17:51 | Emergency (ER) | payer BC, SELFPAY ==
[2025-03-20 18:08] VITALS: BP 130/75
[2025-03-20 18:31] LABS: Hematocrit 41.5 % (39.0-52.0); Hemoglobin 14.3 g/dL (13.0-18.0); Mean Corp Hgb Conc. 34.5 g/dL (33.0-37.0); Mean Corpuscular Volume 91.2 fL (80.0-94.0); Nucleated Red Blood Cells % 0 % (-); Platelet Count 200 10^3/uL (130-400); Red Cell Dist. Width 13.6 % (11.5-14.5)
[2025-03-20 18:54] LABS: ALT (SGPT) 27 U/L (0-50); AST (SGOT) 21 U/L (17-59); Albumin 4.1 g/dl (3.5-5.0); Alkaline Phosphatase 77 U/L (38-126); Blood Urea Nitrogen 13 mg/dl (9-20); Calcium 9.0 mg/dl (8.4-10.2); Carbon Dioxide 24 mmol/L (22-30); Chloride 98 mmol/L (98-107); Glucose 140 mg/dl (70-99); Lipase 67 U/L (23-300); Potassium 4.1 mmol/L (3.5-5.1); Sodium 131 mmol/L (135-145); Total Protein 7.3 g/dl (6.3-8.2); eGFR > 60.00
== END 2025-03-20 19:22 | disposition left against medical advice (07) ==
LOC: EMR 17:51
PROVIDERS: EMERGENCY PHYSICIAN Student in an Organized Health Care Education/Training Program
DX: R10.9 Unspecified abdominal pain (principal); Z53.21 Procedure and treatment not carried out due to patient leaving prior to being seen by health care provider
CPT/HCPCS: 80053; 83690; 85025

== ENCOUNTER 2025-03-21 23:57 | Observation (INO) | payer BC, SELFPAY ==
[2025-03-21 16:18] VITALS: BP 107/75
[2025-03-21 16:36] LABS: Hematocrit 40.8 % (39.0-52.0); Hemoglobin 13.8 g/dL (13.0-18.0); Mean Corp Hgb Conc. 33.8 g/dL (33.0-37.0); Mean Corpuscular Volume 92.1 fL (80.0-94.0); Nucleated Red Blood Cells % 0 % (-); Platelet Count 215 10^3/uL (130-400); Red Cell Dist. Width 13.6 % (11.5-14.5)
[2025-03-21 16:49] LABS: ALT (SGPT) 24 U/L (0-50); AST (SGOT) 20 U/L (17-59); Albumin 4.2 g/dl (3.5-5.0); Alkaline Phosphatase 83 U/L (38-126); Blood Urea Nitrogen 15 mg/dl (9-20); Calcium 9.2 mg/dl (8.4-10.2); Carbon Dioxide 26 mmol/L (22-30); Chloride 101 mmol/L (98-107); Glucose 113 mg/dl (70-99); Potassium 4.2 mmol/L (3.5-5.1); Sodium 135 mmol/L (135-145); Total Protein 7.5 g/dl (6.3-8.2); eGFR > 60.00
[2025-03-21 19:05] VITALS: BMI 23.9
[2025-03-21 19:06] VITALS: BP 118/83
[2025-03-21 21:54] VITALS: BP 119/75
--- NOTE | 2025-03-21 21:56 | ED.GENMED ---
History of Present Illness
<Yaritza Arnold NP - Last Filed: 03/21/25 23:18>
General
Chief Complaint: Abnormal Lab Value
Source: patient
Exam Limitations: none
Time Seen by Provider: 03/21/25 18:55
Nursing documentation reviewed up to this point in time: agreed with
History of Present Illness
History of Present Illness:
Patient to the emergency department for evaluation of left lower quadrant abdominal pain. Patient was admitted here in late January with abdominal pain. He was found to have acute appendicitis on an outpatient CT. he was treated nonoperatively,
IV antibiotics due to the large amount of inflammation at the time of his presentation. He developed periappendiceal abscess. A drain was placed by IR. He was then discharged home and treated with oral antibiotics. On 03/12 he had a tube study
performed by IR which demonstrated resolution of the abscess cavity. The drain was then removed. Patient states he started with left lower quadrant pain approximately 3 days ago he states the pain is intermittent but is similar to the pain that he
experienced just prior to his appendicitis diagnosis. He came to the emergency department last night for evaluation but left prior to being seen. Labs were drawn at triage and revealed a white count of 13.4. He was notified by the surgical office
today to return to the emergency department due to this elevation in white count. He denies any fever or chills. He denies any nausea vomiting or diarrhea. Brought self to the emergency department for evaluation.
Past History
<Yaritza Arnold RITUAL CIRCUMCISER - Last Filed: 03/21/25 23:18>
Past History
ED Past Medical History: HTN and Psychiatric
ED Past Surgical History: None
Social History
Tobacco: Smoker
Alcohol: Occasional
Drug: Marijuana (last smoked one week ago) and Other (xanax taken one week ago)
Personal: Single
Living: with family
Employment: Employed
Review of Systems
<Yaritza Arnold NP - Last Filed: 03/21/25 23:18>
Review of Systems
Allergies reviewed?: Yes
All Other Systems: ROS reviewed and negative except as documented in HPI and ROS
Constitutional: Reports no symptoms
EENT: Reports no symptoms
Respiratory: Reports no symptoms
Cardiac: Reports no symptoms
ABD/GI: Reports abdominal pain (Intermittent left lower quadrant abdominal pain)
: Reports no symptoms
Musculoskeletal: Reports no symptoms
Skin: Reports no symptoms
Neurological: Reports no symptoms
Psychiatric: Reports no symptoms
Phy Exam
<Yaritza Arnold RITUAL CIRCUMCISER - Last Filed: 03/21/25 23:18>
General Physical Exam
General Presentation: well appearing and no apparent distress
General age: appears stated age
General Skin: warm and dry
General Habitus: normal
Cardiovascular Exam
Cardiovascular Exam: regular rate/rhythm and no edema
Pulmonary Exam
Pulmonary Exam: lungs clear and no respiratory distress
Gastrointestinal Exam
Gastrointestinal Exam: normal bowel sounds, soft, no organomegaly and non distended
Palpation: left upper quadrant: No tenderness, left lower quadrant: Mild tenderness, right upper quadrant: No tenderness and right lower quadrant: No tenderness
Musculoskeletal Exam
Musculoskeletal Exam: full ROM and neuro vasc intact
Skin Exam
Skin Exam: normal color, warm/dry and no rash
Psychiatric Exam
Psychiatric Exam: normal mood/affect
Course
<Yaritza Arnold RITUAL CIRCUMCISER - Last Filed: 03/21/25 23:18>
Orders/Labs/Results
Orders:
Orders
03/21/25 16:23
CBC/With Diff [Complete Blood Count/With Diff] Urgent
CMP [Comprehensive Metabolic Panel] Urgent
03/21/25 19:47
CT Abd/pelvis W Iv Cont Urgent
Comment:
Reason For Exam: left abd pain
03/21/25 21:59
Urinalysis Reflex To Culture Urgent
Date Specimen was Collected: 03/21/25
Time Specimen was Collected: 21:58
Urine Microscopic Reflex Cult Urgent
03/21/25 22:31
Piperacillin/Tazo 3.375 Gram [Zosyn] 3.375 gram in 50 ml IV NOW
Abnormal Lab Results
03/21/25 03/21/25
16:23 21:59
WBC 12.1 H 10^3/uL
(4.8-10.8)
RBC 4.43 L 10^6/uL
(4.70-6.10)
MCH 31.2 H pg
(27.0-31.0)
Absolute Neuts (auto) 9.2 H 10^3/uL
(1.4-6.5)
Absolute Monos (auto) 1.1 H 10^3/uL
(0.1-0.6)
Neutrophils % 75.8 H %
(42.2-75.2)
Lymphocytes % 13.9 L %
(20.5-51.1)
Glucose 113 H mg/dl
(70-99)
Urine Ketones 1+ A
(Negative)
Urine Albumin (Reflex) 2+ A
(Neg - Trace)
03/21/25 16:23
03/21/25 16:23
Vital Signs
Initial and Last Documented VS:
Initial Vital Signs
Temp Pulse Resp BP Pulse Ox
98.3 F 87 15 107/75 99
03/21/25 16:18 03/21/25 16:18 03/21/25 16:18 03/21/25 16:18 03/21/25 16:18
Last Documented Vital Signs
Temp Pulse Resp BP Pulse Ox
98.8 F 80 17 119/75 99
03/21/25 21:54 03/21/25 21:54 03/21/25 21:54 03/21/25 21:54 03/21/25 21:57
<Gamaliel Jay MD - Last Filed: 03/21/25 22:20>
Orders/Labs/Results
Orders:
Orders
03/21/25 16:23
CBC/With Diff [Complete Blood Count/With Diff] Urgent
CMP [Comprehensive Metabolic Panel] Urgent
03/21/25 19:47
CT Abd/pelvis W Iv Cont Urgent
Comment:
Reason For Exam: left abd pain
03/21/25 21:59
Urinalysis Reflex To Culture Urgent
Date Specimen was Collected: 03/21/25
Time Specimen was Collected: 21:58
Urine Microscopic Reflex Cult Urgent
03/21/25 22:31
Piperacillin/Tazo 3.375 Gram [Zosyn] 3.375 gram in 50 ml IV NOW
Abnormal Lab Results
03/21/25 03/21/25
16:23 21:59
WBC 12.1 H 10^3/uL
(4.8-10.8)
RBC 4.43 L 10^6/uL
(4.70-6.10)
MCH 31.2 H pg
(27.0-31.0)
Absolute Neuts (auto) 9.2 H 10^3/uL
(1.4-6.5)
Absolute Monos (auto) 1.1 H 10^3/uL
(0.1-0.6)
Neutrophils % 75.8 H %
(42.2-75.2)
Lymphocytes % 13.9 L %
(20.5-51.1)
Glucose 113 H mg/dl
(70-99)
Urine Ketones 1+ A
(Negative)
Urine Albumin (Reflex) 2+ A
(Neg - Trace)
03/21/25 16:23
03/21/25 16:23
Vital Signs
Initial and Last Documented VS:
Initial Vital Signs
Temp Pulse Resp BP Pulse Ox
98.3 F 87 15 107/75 99
03/21/25 16:18 03/21/25 16:18 03/21/25 16:18 03/21/25 16:18 03/21/25 16:18
Last Documented Vital Signs
Temp Pulse Resp BP Pulse Ox
98.8 F 80 17 119/75 99
03/21/25 21:54 03/21/25 21:54 03/21/25 21:54 03/21/25 21:54 03/21/25 21:57
<Yaritza Arnold NP - Last Filed: 03/21/25 23:18>
*Radiology
Radiology exam reviewed: radiology read reviewed
*Pulse Oximetry
SaO2: 99
Oxygen Mode of Delivery: Room air
Patient hypoxic: no
*Critical Care Note
Total Time (30-74mins, 75-104mins- exclusive of procedures): Not Applicable
<Yaritza Arnold NP - Last Filed: 03/21/25 23:18>
Update Note
Update Note:
Patient to the emergency department for evaluation of left lower quadrant abdominal pain. He was diagnosed with acute appendicitis late January. He was treated nonsurgically with IV antibiotics. He had developed an abscess and a drain was
placed. Drain was removed on 03/12 after tube study demonstrated resolution of abscess. On arrival to ED tonight he is awake alert and oriented in no distress. Vital signs are stable and he remains afebrile. WBC of 12.1 noted CMP within normal
limits. UA negative for UTI. He was sent for repeat CT. report of persistent though slightly improved abscess in the right lower quadrant with persistent though improved inflammatory soft tissue stranding. Discussed patient presentation and CT
findings with Dr. Torres who requests admission to his service. He will have IR place drain in AM. Dr. Armstrong notifed. Discussed plan with patient and he is agreeable to this admission. NPO after midnight. IV Zosyn initiated
ED Attending Note
<Yaritza Arnold NP - Last Filed: 03/21/25 23:18>
-
Portions of this chart may have been created with voice recognition software.� Occasional wrong word or��sound alike� substitutions may have occurred due to the inherent limitations of voice recognition software.
<Gamaliel Jay MD - Last Filed: 03/21/25 22:20>
ED Attending Note
Patient seen and examined by attending physician: Yes
I performed the substantive portion of visit, reviewed & personally made and approve the management plan that is documented in note by myself or ABDI.: Yes
ED Attending Note:
I have seen and evaluated the patient with a [id number] encounter. I have spoken to the [ABDI] and involved in the medical history, the physical exam, medical decision making.
Evaluation and management service: agree unless noted differently below.
Results interpretation: agree unless noted differently below.
Patient is a 39-year-old man presenting to the emergency department with elevated WBC. Patient was seen here yesterday and left without being seen. He was called back as he had an elevated white count. Per chart review patient was admitted for
acute cystitis with an abscess and had a drain placed. It was removed outpatient. Patient is having some mild abdominal discomfort. No nausea no vomiting. On my evaluation patient is resting comfortably. Abdomen soft nondistended. Still some
tenderness in the right lower quadrant. Concern for recurrent abscess or complication. Blood work does show leukocytosis CT scan does show an abscess. Discussed with general surgery who recommended admission.
Discharge Plan
Departure
Patient Disposition: Admit
Date of Disposition: 03/21/25
Time of Disposition: 22:28
Presentation/result/management discussed w/ accepting MD/DO: Dr. Torres
Patient with high blood pressure during this ER visit?: No
Condition: Fair
Covid-19: Not Applicable
Discharge Problem:
Intra-abdominal abscess
Prescriptions:
No Action
trazodone 50 mg Tablet
50 mg PO HSPRN PRN (Reason: sleep)
amlodipine [Norvasc] 10 mg Tablet
10 mg PO DAILY
Referrals:
Lobo Mayen PA [Family Provider, Family Practice]
Interventions
Interventions:
*General Assessment Last Done: 03/21/25 19:11
*Neglect/Abuse Screening Last Done: 03/21/25 19:11
*ED COVID-19 Vaccine History Last Done: 03/21/25 16:18
*ED Influenza Vaccine History Last Done: 03/21/25 16:18
[facility] Risk Assessment Tool Last Done: 03/21/25 19:06
*Risk Screen - Suicide (C-SSRS) Last Done: 03/21/25 16:18
Discharge Date and Time
Print Language: KOSOVAN
[2025-03-21 22:15] LABS: Urine Character Clear (Clear)
[2025-03-21 22:31] LABS: Urine Red Blood Cell 0-2 /HPF (0-2); Urine Squamous Cell 0-2 /LPF (Few)
[2025-03-21 22:32] LABS: Urine White Cell 0-2 /HPF (0-5)
[2025-03-21] MEDS: ZOSYN 50 IV (22:43)
--- NOTE | 2025-03-21 22:47 | HPS.HSE ---
Addendum entered and electronically signed by Herman Torres MD 03/22/25 11:57:
I saw and examined the patient.
The Test Automation Architect's note was reviewed and I agree with the note.
Comment: Increasing abd pain prompting ED visit with leukocytosis. Left AMA but came back for imaging which showed recurrent RLQ colllection. WBC normalized in the interim. He is minimally ttp. For IR drain today. OK for reg diet after drain
placement
Original Note:
Family Physician
-
Family Physician: MARIO Pereira
Chief Complaint
-
Abdominal pain/Abnormal lab value
History of Present Illness
Patient is a 39 year old male, with a past medical history significant for hypertension, who presents to the emergency department for evaluation of left lower quadrant abdominal pain. Patient was admitted here previously on February 21, 2025 with
abdominal pain. He was found to have acute appendicitis on an outpatient CT. He was treated nonoperatively, IV antibiotics due to the large amount of inflammation at the time of his presentation. He developed periappendiceal abscess. A drain was
placed by IR. He was then discharged home and treated with oral antibiotics. On 03/12 he had a tube study performed by IR which demonstrated resolution of the abscess cavity. The drain was then removed outpatient. Patient states he started with
left lower quadrant pain approximately 3 days ago he states the pain is intermittent but is similar to the pain that he experienced just prior to his appendicitis diagnosis. He came to the emergency department last night for evaluation but left
prior to being seen. Labs were drawn at triage and revealed a white count of 13.4. He was notified by the surgical office today to return to the emergency department due to this elevation in white count. Patient admits to temperate of 100.7,
relieved with Tylenol. He admits to one episode of diarrhea. He denies any nausea or vomiting. Brought himself to the emergency department for evaluation.
In the emergency department, CBC showed elevated WBC at 12.1. CMP within normal limits. UA unremarkable. Patient is afebrile and vital signs are stable.
CT Abd/Pelvis impression:
Persistent, though slightly improved abscess in the right lower quadrant. Persistent, though slightly improved adjacent and surrounding inflammatory soft tissue stranding. No new collection. No free air.
Possible mild cystitis in the proper clinical setting. No obstructive uropathy.
No localized or focal inflammatory process appreciated with specific attention to left lower quadrant. No bowel wall thickening. No evidence of bowel obstruction.
In the emergency department, patient received IV antibiotics, Zosyn 3.375 g IV x 1.
ED provider Yaritza Arnold NP, reviewed with General Surgery, Dr. Torres, who is accepting the patient to his service.
Plan: NPO, IV fluids, IV antibiotics, pain management, antiemetics. Consult IR for possible drain placement in AM.
Medical History
Past Medical History
Past Medical History: Reports HTN and Psychiatric
Past Surgical History: Reports None
Social History
Tobacco: Smoker (Attempting to stop smoking, down to 1 pack/week)
Alcohol: Occasional (one drink/week)
Drug: Marijuana (last smoked one week ago) and Other (Xanax )
Personal: Single
Living: With Family
Employment: Employed
Family History
Family History: Not pertinent
Allergies / Home Medications
Allergies reflects when Allergies were last updated in [facility] [employer].
Home Medications with original date entered in [facility]
Allergy/Medication List:
Patient Allergies
Allergy/AdvReac Type Severity Reaction Status Date / Time
shellfish derived Allergy Unknown Verified 03/21/25 19:05
Home Medications
�Medication �Instructions �Recorded
amlodipine 10 mg tablet (Norvasc) 10 mg PO DAILY Blood Pressure 02/21/25
trazodone 50 mg tablet 50 mg PO HSPRN PRN sleep 02/21/25
Review of Systems
-
History Source: Patient
A 12 point ROS was completed and negative except as noted: Yes
Respiratory: Reports No Symptoms
Cardiac: Reports No Symptoms
Abdomen/GI: Reports Abdominal Pain (intermittent left lower quadrant abdominal pain) and Diarrhea (one episode in morning)
: Reports No Symptoms
Musculoskeletal: Reports No Symptoms
Psych: Reports Calm
Physical Exam
Vital Signs
Vital Signs
Temp Pulse Resp BP Pulse Ox
98.8 F 80 17 119/75 99
03/21/25 21:54 03/21/25 21:54 03/21/25 21:54 03/21/25 21:54 03/21/25 21:57
Physical Exam
General: Well Developed, No Apparent Distress, Comfortable and Conversant
HEENT: NormoCephalic, Moist mucous membranes and PERRLA
Respiratory: Clear and Non Labored Respirations
Cardiac: S1/S2 and Regular Rhythm
GI: Soft, Non Distended, Normal Bowel Sounds, Tender (right upper quadrant-no tenderness; right lower quadrant-no tenderness; left upper quadrant-no tenderness; left lower quadrant-mild tenderness.) and Distended
Musculoskeletal: No Edema
Neuro: Awake, Alert and Oriented
Psych: Calm
Laboratory Results
-
03/21/25 16:23
03/21/25 16:23
Laboratory Results
Total Bilirubin 0.6 mg/dl (0.2-1.3) 03/21/25 16:23
AST 20 U/L (17-59) 03/21/25 16:23
ALT 24 U/L (0-50) 03/21/25 16:23
Alkaline Phosphatase 83 U/L (38-126) 03/21/25 16:23
Data Reviewed
-
CT Scan: Report Reviewed by me
Lab Data: Labs Reviewed by me
Impression/Plan
-
IMPRESSION:
Patient is a 39 year old male, with a past medical history significant for hypertension, who presents to the emergency department for evaluation of left lower quadrant abdominal pain and elevated WBC.
PLAN:
Intra-abdominal abscess
-Admit to General Surgery, Med/Surg under the service of Dr. Torres
-CT Abd/Pelvis impression:
Persistent, though slightly improved abscess in the right lower quadrant. Persistent, though slightly improved adjacent and surrounding inflammatory soft tissue stranding. No new collection. No free air.
Possible mild cystitis in the proper clinical setting. No obstructive uropathy.
No localized or focal inflammatory process appreciated with specific attention to left lower quadrant. No bowel wall thickening. No evidence of bowel obstruction.
-NPO until seen by Surgery, IV fluids NSS @ 75 mls/hr.
-Consult IR for evaluation of drain placement
-IV Antibiotics: Continued Zosyn 3.375 mg IV Q6H.
-Pain medication: Toradol 10 mg IV Q6H PRN, Tylenol 650 mg PO Q6H PRN.
-Antiemetics: Zofran 4 mg IV Q6H PRN
Hypertension
-Continue home medication: Amlodipine 10 mg PO daily
Nicotine dependence
-Nicotine patch ordered
-Encourage cessation
DVT Prophylaxis: SCD's
Code status: Full code
[2025-03-22] VITALS (8 sets, daily range): BP systolic 55–124; BP diastolic 56–79; BMI 24.1
[2025-03-22] MEDS: NSS 1000 IV (01:17)
--- NOTE | 2025-03-22 01:43 | PTCARENOTE ---
Received pt from ED @0040. Pt ambulated from wheelchair to bed. AAOx3. VSS. No c/o pain. Admission assessment completed. Pt oriented to room, call harp, and plan of care.
[2025-03-22] MEDS: MELATONIN 5 MG PO (02:10)
[2025-03-22] MEDS: TORADOL 10 MG IV (02:46)
[2025-03-22] MEDS: ZOSYN 50 IV ×3 (04:08→15:33)
[2025-03-22 06:23] LABS: Hematocrit 38.9 % (39.0-52.0); Hemoglobin 13.3 g/dL (13.0-18.0); Mean Corp Hgb Conc. 34.2 g/dL (33.0-37.0); Mean Corpuscular Volume 92.0 fL (80.0-94.0); Platelet Count 236 10^3/uL (130-400); Red Cell Dist. Width 13.6 % (11.5-14.5)
[2025-03-22 06:48] LABS: Blood Urea Nitrogen 10 mg/dl (9-20); Calcium 9.0 mg/dl (8.4-10.2); Carbon Dioxide 27 mmol/L (22-30); Chloride 102 mmol/L (98-107); Estimated Creatinine Clearance 121 ml/min; Glucose 84 mg/dl (70-99); Potassium 4.2 mmol/L (3.5-5.1); Sodium 136 mmol/L (135-145); eGFR > 60.00
[2025-03-22] MEDS: NICODERM TRANSDERMAL 7 MG TRANSDERM (08:53)
--- NOTE | 2025-03-22 13:11 | W.PN.UPDATE ---
Update Note
Progress Note Update
Placed 8.5 fr drain RLQ, drained a couple cc's of bloody pus. Sent for laboratory analysis.
[2025-03-22] MEDS: NSS IV (14:00)
--- NOTE | 2025-03-22 14:53 | PTCARENOTE ---
Pt returned from IR on a stretcher with RLQ TRINA drain. Serosang drainage. Orders to flush with NSS 10cc daily. Pt ordered regular diet. Care ongoing.
== END 2025-03-22 16:59 | disposition home or self-care (01) ==
LOC: 2 SOUTH 23:57
PROVIDERS: Emergency Medicine; Nurse Practitioner; Nurse Practitioner Family; ADMITTING PHYSICIAN Surgery; EMERGENCY PHYSICIAN Student in an Organized Health Care Education/Training Program; FAMILY PHYSICIAN Physician Assistant
DX: K35.33 Acute appendicitis with perforation, localized peritonitis, and gangrene, with abscess (principal); I10 Essential (primary) hypertension; Z79.899 Other long term (current) drug therapy; F17.210 Nicotine dependence, cigarettes, uncomplicated; Z91.013 Allergy to seafood
CPT/HCPCS: 49406; 74177; 80048; 80053; 81003; 81015; 85025; 85027; 87070; 87071; 87186; 87205; 93005; 96374; 99152; 99285; G0378; Q9967